=== PATIENT | male | born 1950 | race Caucasian/White ===

== ENCOUNTER 2022-02-11 18:10 | Inpatient (IN) | payer MEDICARE ==
[~2022-02-11] VITALS: Ht 188 cm; Wt 63.7 kg
[2022-02-11] MEDS ORDERED: ASCO500 PO (18:27)
[2022-02-11] MEDS ORDERED: TAMS-13 PO (18:27)
[2022-02-11] MEDS ORDERED: ALPR-707 PO (18:27)
[2022-02-11] MEDS ORDERED: TRAM50TA4 PO (18:27)
[2022-02-11] MEDS ORDERED: OMEP20 PO (18:29)
[2022-02-11] MEDS ORDERED: CALC0.2521 PO (18:29)
[2022-02-11] MEDS ORDERED: FINA-27 PO (18:29)
[2022-02-11] MEDS ORDERED: OS500 PO (18:29)
[2022-02-11] MEDS ORDERED: ESCI20TA87 PO (18:29)
[2022-02-11] MEDS ORDERED: SODIUM CHLORIDE 0.9% 1,000 ML IV ONE ×2 (18:45→20:00)
[2022-02-11 19:03] LABS: BASOPHILS % (AUTO) 0.9 % (0.0-2.0); EOSINOPHILS % (AUTO) 6.8 % (1.0-6.0); HEMATOCRIT 27.5 % (41-53); HEMOGLOBIN 8.9 g/dL (13.5-17.5); LYMPHOCYTES # (AUTO) 2.1 K/uL (1.0-4.8); LYMPHOCYTES % (AUTO) 49.2 % (22.0-44.0); MEAN CORPUSCULAR HEMOGLOBIN 26.7 pg (26.0-34.0); MEAN CORPUSCULAR HGB CONC 32.4 G/dL (31.0-37.0); MEAN CORPUSCULAR VOLUME 82 fL (80-100); MONOCYTES # (AUTO) 0.4 K/uL (0.1-1.0); MONOCYTES % (AUTO) 8.4 % (2.0-9.0); NEUTROPHILS # (AUTO) 1.5 K/uL (1.8-7.7); NEUTROPHILS % (AUTO) 34.7 % (40.0-70.0); PLATELET COUNT (AUTO) 192 K/uL (150-450); RED BLOOD CELL COUNT(AUTO) 3.34 MIL/uL (4.50-5.90); RED CELL DISTRIBUTION WIDTH 15.2 % (11.5-14.5)
[2022-02-11 19:12] LABS: CALCIUM, TOTAL 9.6 mg/dL (8.8-10.5); CREATININE 1.27 mg/dL (0.60-1.30)
[2022-02-11 19:17] LABS: COVID AG,FIA SOURCE NASOPHARYNGEAL
[2022-02-11 19:18] LABS: ALBUMIN 2.3 g/dL (3.4-5.0); BILIRUBIN,TOTAL 0.3 mg/dL (0.1-1.0); TOTAL PROTEIN, SERUM 7.2 g/dL (6.4-8.2)
[2022-02-11] MEDS ORDERED: ONDANSETRON HCL 4 MG/2 ML VIAL IVP PRN ×2 (20:00→20:30)
[2022-02-11] MEDS ORDERED: ACETAMINOPHEN 325 MG TABLET PO PRN (20:00)
[2022-02-11] MEDS ORDERED: ALPRAZolam 0.5 MG TABLET PO PRN (20:45)
[2022-02-11 20:47] LABS: RETICULOCYTE % (AUTO) 0.9 % (0.5-2.3)
[2022-02-11 20:59] LABS: % IRON SATURATION 11.3 % (30-44)
[2022-02-11] MEDS ORDERED: 1: MAGNESIUM SULFATE 2 GM, MVI, ADULT NO.1 WITH VIT K 10 ML, THIAMINE 100 MG, FOLIC ACID IV SCH ×5 (21:00)
[2022-02-11] MEDS: OMEPRAZOLE 20 MG CAPSULE PO SCH (21:00)
[2022-02-11 21:03] LABS: APPEARANCE,URINE CLEAR (CLEAR); BILIRUBIN,URINE NEGATIVE (NEGATIVE); GLUCOSE, URINE (UA) NEGATIVE (NEGATIVE); KETONES,URINE TRACE mg/dL (NEGATIVE); LEUKOCYTE ESTERASE ,URINE SMALL (NEGATIVE); NITRATE,URINE POSITIVE (NEGATIVE); OCCULT BLOOD,URINE NEGATIVE (NEGATIVE); PH,URINE 6.5 (5.0-8.0); PROTEIN,URINE 30-70 mg/dL (NEGATIVE); SPECIFIC GRAVITIY, URINE 1.025 (1.003-1.030); UROBILINOGEN,URINE <=1.0 mg/dL (<=1.0)
[2022-02-11] MEDS: FINASTERIDE 5 MG TABLET PO SCH (21:04)
[2022-02-11] MEDS: CALCIUM CARBONATE 500 MG TABLET PO SCH (21:04)
[2022-02-11 21:21] LABS: BACTERIA,URINE Many /HPF (None Seen)
[2022-02-11 21:22] LABS: CALCIUM OXALATE CRYSTALS,UR Moderate /LPF (None Seen); RBC,URINE None Seen /HPF (0-2)
[2022-02-11] MEDS: TAMSULOSIN HCL 0.4 MG CAPSULE PO SCH (21:23)
[2022-02-11] MEDS: FAMOTIDINE 10 MG/ML 2 ML VIAL IVP SCH (21:23)
[2022-02-11 21:38] LABS: THYROID STIMULATING HORMONE 1.03 uIU/mL (0.36-3.74)
[2022-02-11 23:01] VITALS: BP 104/57
[2022-02-11] MEDS: CefTRIAXone 1 GM/DEXTROSE 50 ML IV SCH (23:24)
[2022-02-12] MEDS ORDERED: PNEUMOCOCCAL VACCINE POLYVALENT 0.5 ML VIAL [PPSV23] IM. ONE (00:15)
[2022-02-12] MEDS: ACETAMINOPHEN 325 MG TABLET PO PRN (03:07)
[2022-02-12 03:39] VITALS: BP 92/56
[2022-02-12 08:18] VITALS: BP 104/52
[2022-02-12] MEDS: MULTIVITAMINS WITH MINERALS, THERAPEUTIC TABLET PO SCH (08:54)
[2022-02-12] MEDS: ASCORBIC ACID 500 MG TABLET PO SCH (08:54)
[2022-02-12] MEDS: CALCIUM CARBONATE 500 MG TABLET PO SCH ×3 (08:54→20:32)
[2022-02-12] MEDS: CALCITRIOL 0.25 MCG CAPSULE PO SCH (08:54)
[2022-02-12] MEDS ORDERED: CALCITRIOL 0.25 MCG CAPSULE PO SCH (09:00)
[2022-02-12] MEDS ORDERED: ESCITALOPRAM OXALATE 20 MG TABLET PO SCH (09:00)
[2022-02-12] MEDS: RINGERS SOLUTION,LACTATED 1,000 ML IV SCH ×2 (09:00→17:00)
[2022-02-12] MEDS ORDERED: MORPHINE SULFATE 2 MG/ML SYRINGE IVP ONE ×2 (10:15→20:30)
[2022-02-12] MEDS: ESCITALOPRAM OXALATE 20 MG TABLET PO SCH (12:22)
[2022-02-12] MEDS: FAMOTIDINE 10 MG/ML 2 ML VIAL IVP SCH ×2 (12:22→20:32)
[2022-02-12 15:24] VITALS: BP 108/53
[2022-02-12] MEDS ORDERED: 1: MAGNESIUM SULFATE 2 GM, MVI, ADULT NO.1 WITH VIT K 10 ML, THIAMINE 100 MG, FOLIC ACID IV SCH ×6 (17:00)
[2022-02-12] MEDS: MEGESTROL ACETATE 40 MG TABLET PO SCH ×2 (17:26→20:32)
[2022-02-12 19:35] VITALS: BP 106/56
[2022-02-12] MEDS: 1: MAGNESIUM SULFATE 2 GM, MVI, ADULT NO.1 WITH VIT K 10 ML, THIAMINE 100 MG, FOLIC ACID IV SCH ×5 (20:31)
[2022-02-12] MEDS: TAMSULOSIN HCL 0.4 MG CAPSULE PO SCH (20:32)
[2022-02-12] MEDS: OMEPRAZOLE 20 MG CAPSULE PO SCH (20:32)
[2022-02-12] MEDS: CefTRIAXone 1 GM/DEXTROSE 50 ML IV SCH (22:01)
[2022-02-12] MEDS: POLYETHYLENE GLYCOL 3350 17 GM PACKET PO PRN (22:02)
[2022-02-13] MEDS: HEPARIN SODIUM,PORCINE 5,000 UNITS/ML VIAL SQ SCH ×5 (00:20→23:43)
[2022-02-13] MEDS: FINASTERIDE 5 MG TABLET PO SCH ×2 (00:20→20:23)
[2022-02-13 04:05] VITALS: BP 128/64
[2022-02-13 06:05] LABS: BASOPHILS % (AUTO) 0.7 % (0.0-2.0); EOSINOPHILS % (AUTO) 6.3 % (1.0-6.0); HEMATOCRIT 24.5 % (41-53); HEMOGLOBIN 8.2 g/dL (13.5-17.5); LYMPHOCYTES # (AUTO) 1.7 K/uL (1.0-4.8); LYMPHOCYTES % (AUTO) 47.5 % (22.0-44.0); MEAN CORPUSCULAR HGB CONC 33.7 G/dL (31.0-37.0); MEAN CORPUSCULAR VOLUME 80 fL (80-100); MONOCYTES # (AUTO) 0.3 K/uL (0.1-1.0); MONOCYTES % (AUTO) 7.8 % (2.0-9.0); NEUTROPHILS # (AUTO) 1.4 K/uL (1.8-7.7); NEUTROPHILS % (AUTO) 37.7 % (40.0-70.0); PLATELET COUNT (AUTO) 168 K/uL (150-450); RED BLOOD CELL COUNT(AUTO) 3.05 MIL/uL (4.50-5.90)
[2022-02-13 06:10] LABS: ANION GAP 6 mmol/L (8-16); CALCIUM, TOTAL 8.6 mg/dL (8.8-10.5); CARBON DIOXIDE 26 mmol/L (22-29); CHLORIDE 104 mmol/L (98-107); CREATININE 1.07 mg/dL (0.60-1.30); GLUCOSE,RANDOM 99 mg/dL (70-110); POTASSIUM 3.4 mmol/L (3.5-5.1); SODIUM SERUM 136 mmol/L (136-145); UREA NITROGEN, BLOOD 16 mg/dL (7-18)
[2022-02-13 06:20] LABS: GLOMERULAR FILTR. RATE CALC > 60 mL/min (>60)
[2022-02-13] MEDS: 1: MAGNESIUM SULFATE 2 GM, MVI, ADULT NO.1 WITH VIT K 10 ML, THIAMINE 100 MG, FOLIC ACID IV SCH ×15 (06:30→23:39)
[2022-02-13] MEDS: ACETAMINOPHEN 325 MG TABLET PO PRN ×4 (07:04→22:52)
[2022-02-13 07:40] VITALS: BP 98/52
[2022-02-13] MEDS: ASCORBIC ACID 500 MG TABLET PO SCH (08:27)
[2022-02-13] MEDS: CALCIUM CARBONATE 500 MG TABLET PO SCH ×3 (08:27→20:24)
[2022-02-13] MEDS: CALCITRIOL 0.25 MCG CAPSULE PO SCH (08:27)
[2022-02-13] MEDS: MEGESTROL ACETATE 40 MG TABLET PO SCH ×2 (08:27→20:24)
[2022-02-13] MEDS: MULTIVITAMINS WITH MINERALS, THERAPEUTIC TABLET PO SCH (08:27)
[2022-02-13] MEDS: ESCITALOPRAM OXALATE 20 MG TABLET PO SCH (08:27)
[2022-02-13] MEDS: FAMOTIDINE 10 MG/ML 2 ML VIAL IVP SCH ×2 (08:28→20:25)
[2022-02-13] MEDS ORDERED: POTASSIUM CHLORIDE 20 MEQ ER TABLET PO PRN (13:15)
[2022-02-13] MEDS ORDERED: POTASSIUM CHL 10 MEQ/WATER 50 ML IV PRN (13:15)
[2022-02-13 15:46] VITALS: BP 114/56
[2022-02-13] MEDS: FERROUS SULFATE 325 MG EC TABLET PO SCH (17:53)
[2022-02-13 19:16] VITALS: BP 106/63
[2022-02-13] MEDS: OMEPRAZOLE 20 MG CAPSULE PO SCH (20:24)
[2022-02-13] MEDS: TAMSULOSIN HCL 0.4 MG CAPSULE PO SCH (20:24)
[2022-02-13] MEDS ORDERED: CefTRIAXone 1 GM/DEXTROSE 50 ML IV SCH (22:00)
[2022-02-13] MEDS: POLYETHYLENE GLYCOL 3350 17 GM PACKET PO PRN (22:46)
[2022-02-14] MEDS: ACETAMINOPHEN 325 MG TABLET PO PRN ×4 (03:55→20:46)
[2022-02-14] MEDS: ALPRAZolam 0.25 MG TABLET PO PRN ×2 (03:58→20:46)
[2022-02-14 04:40] VITALS: BP 100/52
[2022-02-14 08:07] VITALS: BP 110/61
[2022-02-14] MEDS: ASCORBIC ACID 500 MG TABLET PO SCH (08:33)
[2022-02-14] MEDS: FERROUS SULFATE 325 MG EC TABLET PO SCH ×3 (08:33→17:33)
[2022-02-14] MEDS: MULTIVITAMINS WITH MINERALS, THERAPEUTIC TABLET PO SCH (08:33)
[2022-02-14] MEDS: CALCIUM CARBONATE 500 MG TABLET PO SCH ×3 (08:33→20:37)
[2022-02-14] MEDS: POLYETHYLENE GLYCOL 3350 17 GM PACKET PO PRN (08:34)
[2022-02-14] MEDS: HEPARIN SODIUM,PORCINE 5,000 UNITS/ML VIAL SQ SCH ×2 (08:34→16:14)
[2022-02-14] MEDS: ESCITALOPRAM OXALATE 20 MG TABLET PO SCH (08:34)
[2022-02-14] MEDS: MEGESTROL ACETATE 40 MG TABLET PO SCH ×2 (08:34→20:37)
[2022-02-14] MEDS: CALCITRIOL 0.25 MCG CAPSULE PO SCH (08:34)
[2022-02-14] MEDS: FAMOTIDINE 10 MG/ML 2 ML VIAL IVP SCH ×2 (08:34→20:38)
[2022-02-14] MEDS: 1: MAGNESIUM SULFATE 2 GM, MVI, ADULT NO.1 WITH VIT K 10 ML, THIAMINE 100 MG, FOLIC ACID IV SCH ×5 (12:01)
[2022-02-14] MEDS ORDERED: *CLINICAL-CEFTAROLINE DOSING CLINICAL ONE ×2 (15:15)
[2022-02-14 15:39] VITALS: BP 90/51
[2022-02-14] MEDS ORDERED: CEFTAROLINE 600 MG/D5W 250 ML IV SCH (16:00)
[2022-02-14] MEDS ORDERED: VANCOMYCIN HCL 1 GM/D5% WATER 200 ML IV ONE (16:00)
[2022-02-14 19:21] VITALS: BP 108/58
[2022-02-14] MEDS: FINASTERIDE 5 MG TABLET PO SCH (20:37)
[2022-02-14] MEDS: OMEPRAZOLE 20 MG CAPSULE PO SCH (20:37)
[2022-02-14] MEDS: TAMSULOSIN HCL 0.4 MG CAPSULE PO SCH (20:39)
[2022-02-14] MEDS ORDERED: SODIUM CHLORIDE 0.9% 1,000 ML ONE (23:10)
[2022-02-15] MEDS: 1: MAGNESIUM SULFATE 2 GM, MVI, ADULT NO.1 WITH VIT K 10 ML, THIAMINE 100 MG, FOLIC ACID IV SCH ×10 (00:14→06:13)
[2022-02-15] MEDS: HEPARIN SODIUM,PORCINE 5,000 UNITS/ML VIAL SQ SCH ×3 (00:14→16:22)
[2022-02-15] MEDS: ACETAMINOPHEN 325 MG TABLET PO PRN ×3 (00:51→16:36)
[2022-02-15 04:26] VITALS: BP 95/54
[2022-02-15 06:03] LABS: ANION GAP 6 mmol/L (8-16); CALCIUM, TOTAL 8.1 mg/dL (8.8-10.5); CARBON DIOXIDE 23 mmol/L (22-29); CHLORIDE 107 mmol/L (98-107); CREATININE 0.92 mg/dL (0.60-1.30); GLOMERULAR FILTR. RATE CALC > 60 mL/min (>60); GLUCOSE,RANDOM 86 mg/dL (70-110); POTASSIUM 3.7 mmol/L (3.5-5.1); SODIUM SERUM 136 mmol/L (136-145); UREA NITROGEN, BLOOD 12 mg/dL (7-18)
[2022-02-15 06:07] LABS: MAGNESIUM 2.1 mg/dL (1.80-2.40); PHOSPHORUS 2.5 mg/dL (2.5-4.9)
[2022-02-15] MEDS ORDERED: VANCOMYCIN HCL 500 MG in DEXTROSE 5%-WATER 100 ML IV SCH (08:00)
[2022-02-15] MEDS: FAMOTIDINE 10 MG/ML 2 ML VIAL IVP SCH (08:23)
[2022-02-15] MEDS: CALCIUM CARBONATE 500 MG TABLET PO SCH ×2 (08:23→16:22)
[2022-02-15] MEDS: FERROUS SULFATE 325 MG EC TABLET PO SCH ×2 (08:23→13:28)
[2022-02-15] MEDS: CALCITRIOL 0.25 MCG CAPSULE PO SCH (08:23)
[2022-02-15] MEDS: ESCITALOPRAM OXALATE 20 MG TABLET PO SCH (08:23)
[2022-02-15] MEDS: MEGESTROL ACETATE 40 MG TABLET PO SCH (08:23)
[2022-02-15] MEDS: MULTIVITAMINS WITH MINERALS, THERAPEUTIC TABLET PO SCH (08:23)
[2022-02-15] MEDS: ASCORBIC ACID 500 MG TABLET PO SCH (08:23)
[2022-02-15 08:32] VITALS: BP 99/57
[2022-02-15 15:11] VITALS: BP 109/60
[2022-02-15] MEDS ORDERED: FERR325T27 PO (15:30)
[2022-02-15] MEDS ORDERED: MEGE40TA33 PO (15:30)
[2022-02-15] MEDS ORDERED: MULT-248 PO (15:32)
[2022-02-15] MEDS ORDERED: VANC500P5 IVPB (15:40)
[2022-02-15] MEDS ORDERED: VANC500FZ IV (15:42)
[2022-02-15] MEDS ORDERED: POLY17PO47 PO (15:44)
== END 2022-02-15 17:30 | DRG 640 ==
LOC: EMS 18:13 → 6S 20:20 → EMS 22:00
PROVIDERS: ADMIT Internal Medicine; ATTEND Internal Medicine
DX: E86.0 Dehydration (principal); E43 Unspecified severe protein-calorie malnutrition; N39.0 Urinary tract infection, site not specified; Z68.1 Body mass index [BMI] 19.9 or less, adult; G93.40 Encephalopathy, unspecified; R62.7 Adult failure to thrive; E87.1 Hypo-osmolality and hyponatremia; D64.9 Anemia, unspecified; Z20.822 Contact with and (suspected) exposure to COVID-19; E87.6 Hypokalemia; J44.9 Chronic obstructive pulmonary disease, unspecified; K21.9 Gastro-esophageal reflux disease without esophagitis; N21.0 Calculus in bladder; N40.0 Benign prostatic hyperplasia without lower urinary tract symptoms; L89.890 Pressure ulcer of other site, unstageable; K46.9 Unspecified abdominal hernia without obstruction or gangrene; Z91.018 Allergy to other foods; Z86.73 Personal history of transient ischemic attack (TIA), and cerebral infarction without residual deficits
CPT/HCPCS: 71045; 72040; 72146; 72148; 74176; 80048; 80053; 81001; 82271; 83540; 83550; 83690; 83735; 84100; 84132; 84134; 84443; 84484; 85025; 85045; 87081; 87086; 92610; 93005; 97162; 99285; J0696; J0712; J1644; J2270; J3370; J3411; J3475; J3490; J7030; J7060; J7120; 36415-L1; 36415-TC